=== PATIENT | female | born 1955 ===

== ENCOUNTER 2020-11-18 16:10 | Outpatient (CLI) | payer OTHER ==
[2020-11-18] MEDS ORDERED: GADOTERATE MEGLUMINE 7.5 MMOL/15 ML VIAL IV ONE (19:01)
== END 2020-11-18 23:59 | disposition home or self-care (01) ==
LOC: RAD 16:10
DX: H49.02 Third [oculomotor] nerve palsy, left eye (principal); R20.0 Anesthesia of skin; M62.81 Muscle weakness (generalized)
CPT/HCPCS: 70543; 70546; A9575